=== PATIENT | female | born 1980 | race Caucasian/White ===

== ENCOUNTER 2016-09-04 12:22 | Outpatient (CLI) | payer MEDICAID, OTHER ==
[~2016-09-04] VITALS: Ht 170.2 cm; Wt 97.0 kg
[~2016-09-04 12:22] MED LIST: PREN1TAB49
[2016-09-04 12:45] VITALS: Ht 170.2 cm; Wt 97.0 kg
[2016-09-04 12:46] VITALS: BP 122/75; PULSE 95; RESP 20
--- NOTE | 2016-09-04 14:05 | RADRPT ---
PROCEDURE: OB ultrasound for biophysical profile CLINICAL INDICATION: Decrease movement TECHNIQUE: Multiple sonographic images of the pelvis were obtained. Transabdominal views of the g ravid uterus are available for review. The images were reviewed on a PACS workstation. COMPARISON: None FINDINGS: breathing movement = 2/2 tone = 2/2 motion = 2/2 SYED = 2/2 SYED = 17.6 cm Single live intrauterine with cardiac activity of 139 bpm. position is cephal ic. The placenta is anterior. IMPRESSION: 1. Single live intrauterine gestation. 2. Biophysical profile = 8/8. 3. SYED = 17.6 cm. RPTAT: HH .Naida Aguirre MD, MD Date Time Electronically viewed and signed by .Naida Aguirre MD, on 09/04/2016 14:05 .G/
--- NOTE | 2016-09-04 14:27 | PN ---
Date/Time of Note Date/Time of Note DATE: 09/04/16 TIME: 14:24 OB Subjective Subjective Subjective Patient is 3 para 2 at 34+3 weeks of gestation with estimated date of delivery on October 13, 2016 She presents with decreased movement, no contractions, no leaking fluid, no vaginal bleeding OB Objective Objective Objective NST is reactive Biophysical profile of 8 out of 8 with a SYED 18 HEENT: WNL Heart: Rhythm Normal Lungs: Clear, Equal Abdomen: WNL Extremities: Normal Reflexes: Normal Cervical Dilatation: None Membranes: Intact Heart Rate: 140's Accelerations: Accelerations Present Decelerations: No Decelerations OB Assessment/Plan Other Assessment: 34+ weeks of gestation with decreased movement Other plan: Patient was counseled regarding kick counts She was instructed to follow-up with SOLDER[facility] TECHNICIAN in 2-3 days MARBELLA HIGHTOWER MD September 04, 2016 14:27
== END 2016-09-04 14:25 | disposition home or self-care (01) ==
LOC: OBT 12:22 → L-D 12:22 → OBT 14:25
PROVIDERS: ATTEND Obstetrics & Gynecology
DX: O36.8130 Decreased fetal movements, third trimester, not applicable or unspecified (principal); O09.523 Supervision of elderly multigravida, third trimester; Z3A.34 34 weeks gestation of pregnancy
CPT/HCPCS: 76818; G0463

== ENCOUNTER 2016-10-10 17:06 | Inpatient (IN) | payer OTHER ==
[~2016-10-10] VITALS: Ht 167.6 cm; Wt 97.7 kg
[2016-10-10] MEDS ORDERED: [UNRECOGNIZED DRUG - CODE] PO (17:43)
[2016-10-10 17:44] VITALS: BP 131/80; PULSE 97; RESP 20
[2016-10-10] MEDS ORDERED: LACTATED RINGER'S 1,000 ML IV PRN (19:09)
[2016-10-10] MEDS ORDERED: OXYTOCIN 30 UNITS/LR 500 ML IV SCH ×2 (19:30)
[2016-10-10] MEDS ORDERED: OXYTOCIN 30 UNITS/LR 500 ML IV PRN ×2 (19:30)
[2016-10-10] MEDS ORDERED: BUTORPHANOL 2 MG INJ IV PRN (19:30)
[2016-10-10] MEDS ORDERED: AMPICILLIN 2 GM/NS (PMX) 100 ML IV ONE (19:30)
[2016-10-10] MEDS ORDERED: MISOPROSTOL 200 MCG TAB PR PRN (19:30)
[2016-10-10] MEDS ORDERED: METHYLERGONOVINE 0.2 MG INJ IM PRN (19:30)
[2016-10-10] MEDS ORDERED: CARBOPROST 250 MCG INJ IM PRN (19:30)
[2016-10-10] MEDS ORDERED: IBUPROFEN 600 MG TAB PO PRN (19:30)
[2016-10-10] MEDS ORDERED: LIDOCAINE 1% (MPF) 30 ML INJ INJ PRN (19:30)
[2016-10-10] MEDS ORDERED: MINERAL OIL LIGHT 10 ML VIAL TOP PRN (19:30)
[2016-10-10] MEDS: LACTATED RINGER'S 1,000 ML IV SCH (19:53)
[2016-10-10 20:07] LABS: ADD SCAN DIFF NO
[2016-10-10 20:15] LABS: BASOPHILS % 0.3 % (0.0-2.0); EOSINOPHILS # 0.1 10^3/ul (0.0-0.5); EOSINOPHILS % 1.5 % (0.0-7.0); HEMATOCRIT 34.8 % (37.0-47.0); HEMOGLOBIN 11.6 g/dl (12.0-16.0); LYMPHOCYTES % 23.1 % (15.0-51.0); MEAN CORPUSCULAR HEMOGLOBIN 27.8 pg (29.0-33.0); MEAN CORPUSCULAR HGB CONC 33.3 g/dl (32.0-37.0); MEAN CORPUSCULAR VOLUME 83.5 fl (82.0-101.0); MEAN PLATELET VOLUME 12.8 fl (7.4-10.4); MONOCYTE # 0.5 10^3/ul (0.3-0.9); NEUTROPHIL # 5.9 10^3/ul (1.6-7.5); NEUTROPHILS % 68.8 % (39.0-77.0); PLATELET COUNT 178 10^3/UL (140-415); RED BLOOD COUNT 4.17 10^6/ul (4.20-5.40); RED CELL DISTRIBUTION WIDTH 12.9 % (11.5-14.5); WHITE BLOOD COUNT 8.6 10^3/ul (4.8-10.8)
[2016-10-10 20:40] LABS: INR 0.94; PROTIME 12.6 Sec (12.2-14.2)
[2016-10-10 20:41] LABS: PARTIAL THROMBOPLASTIN TIME 24.4 Sec (25.0-35.0)
[2016-10-10] MEDS ORDERED: AMPICILLIN 1 GM/NS (PMX) 50 ML IV SCH (22:00)
[2016-10-11] MEDS: LACTATED RINGER'S 1,000 ML IV SCH ×3 (01:04→17:43)
[2016-10-12] MEDS ORDERED: FENTAnyl 2MCG/ML-ROPIV 0.2% 100 ML ONE (00:52)
[2016-10-12] MEDS: LACTATED RINGER'S 1,000 ML IV SCH (04:03)
[2016-10-12] MEDS ORDERED: MINERAL OIL 30ML CUP PO ONE (04:30)
[2016-10-12] MEDS ORDERED: MINERAL OIL LIGHT 10 ML VIAL TOP ONE (07:30)
--- NOTE | 2016-10-12 08:30 | HP ---
Date/Time of Note Date/Time of Note DATE: 10/12/16 TIME: 08:21 OB - History Hx of Present Free Text/Dictation 36 y.o in early labor with intact membrane having uterine contraction 2 -4 min apart VE 1-2/50% -3 course was unevenful X2 admitted for expectant management poss augmentation. Estimated Due Date: Oct 21, 2016 : 3 Para: 2 Spontaneous : 0 Therapeutic : 0 Care: Good Care Ultrasounds: Normal mid trimester US Obstetrical Complications: None Medical Complications: None Past Family/Social History * Past Medical, Surgical, Family and Obstetric Histories reviewed from chart. Blood Type: O+ Rubella: immune RPR/VDRL: Negative GBS Status: Negative HBsAG: Negative OB Admission Exam Vital Signs Vital Signs Vital Signs Date Time Temp Pulse Resp B/P Pulse Ox O2 Delivery O2 Flow Rate FiO2 10/10/16 17:44 97.5 97 20 131/80 98 Room Air Physical Exam HEENT: WNL Heart: Rhythm Normal Lungs: Clear, Equal Abdomen: WNL Extremities: Normal Reflexes: Normal Cervical Dilatation: 1cm Effacement: 50% Station: -3 Membranes: Intact Amniotic Fluid: Unevaluable Heart Rate: 120's Accelerations: Accelerations Present Decelerations: No Decelerations Varibility: Moderate Contractions on Admission: < 5 Minutes Apart Intensity: Moderate Last 72 hours Lab Results CBC & BMP 10/10/16 19:50 OB Assessment/Plan Reason for admission: active labor, other Plan: Expectant Management OLIVIA ENNIS MD Oct 12, 2016 08:30
[2016-10-12 10:25] VITALS: BP 110/56; PULSE 70; RESP 18
[2016-10-12] MEDS ORDERED: OXYCODONE/ASPIRIN (4.88/325) TAB PO PRN ×2 (12:00)
[2016-10-12] MEDS ORDERED: BENZOCAINE 20% 56 ML SPRAY TOP PRN (12:00)
[2016-10-12] MEDS ORDERED: MISOPROSTOL 200 MCG TAB PR PRN (12:00)
[2016-10-12] MEDS ORDERED: LANOLIN 7 GM TUBE TOP PRN (12:00)
[2016-10-12] MEDS ORDERED: ZOLPIDEM 5 MG TAB PO PRN (12:00)
[2016-10-12] MEDS ORDERED: OXYTOCIN 30 UNITS/LR 500 ML IV PRN (12:00)
[2016-10-12] MEDS ORDERED: METHYLERGONOVINE 0.2 MG INJ IM PRN (12:00)
[2016-10-12] MEDS: IBUPROFEN 600 MG TAB PO SCH ×3 (12:00→23:56)
[2016-10-12] MEDS ORDERED: CARBOPROST 250 MCG INJ IM PRN (12:00)
[2016-10-12] MEDS ORDERED: WITCH HAZEL/GLYCERIN PAD PR PRN (12:00)
[2016-10-12 12:19] VITALS: BP 114/63; PULSE 71; RESP 18
--- NOTE | 2016-10-12 13:34 | LDN ---
Date/Time of Note Date/Time of Note DATE: 10/12/16 TIME: 13:31 Delivery Summary OP rotate Weeks of Gestation [id number] Placenta Delivered: Spontaneously, Intact & Complete Meconium: none Episiotomy: No Perineal laceration: 0 Anesthesia type: Epidural Estimated blood loss: 20 Sponge & Needle done & correct: Yes All needle counts correct: Yes Any foreign bodies felt in the: No Problems: Infant Delivery Information Sex Infant Sex: male Apgars 1 Minute: 9 5 Minute: 9 10 Minute: 9 Suctioning Nose & mouth suctioned at aftab: Yes Delee suction performed: No Umbilical Cord Umbilical cord with: 3 Vessels Cord presentations: no nuchal cord Cord Blood was obtained: Yes Mother & Baby Disposition Disposition Mom & Baby to Maternity; Good: Yes Mom transferred to: Other () Baby to NICU: No OLIVIA ENNIS MD Oct 12, 2016 13:34
[2016-10-12 15:45] VITALS: BP 106/55; PULSE 80; RESP 18
[2016-10-12 20:00] VITALS: BP 115/57; PULSE 77; RESP 19
[2016-10-12] MEDS: SENNA/DOCUSATE NA (8.6MG/50MG) TAB PO SCH (21:00)
[2016-10-13 03:50] VITALS: BP 93/50; PULSE 64; RESP 19
[2016-10-13] MEDS: IBUPROFEN 600 MG TAB PO SCH ×2 (05:40→11:57)
[2016-10-13 08:24] LABS: ADD SCAN DIFF NO
[2016-10-13 08:36] LABS: BASOPHILS % 0.4 % (0.0-2.0); EOSINOPHILS # 0.2 10^3/ul (0.0-0.5); EOSINOPHILS % 2.3 % (0.0-7.0); HEMATOCRIT 31.5 % (37.0-47.0); HEMOGLOBIN 10.3 g/dl (12.0-16.0); LYMPHOCYTES # 2.7 10^3/ul (0.8-2.9); LYMPHOCYTES % 35.5 % (15.0-51.0); MEAN CORPUSCULAR HEMOGLOBIN 28.1 pg (29.0-33.0); MEAN CORPUSCULAR HGB CONC 32.7 g/dl (32.0-37.0); MEAN CORPUSCULAR VOLUME 85.8 fl (82.0-101.0); MEAN PLATELET VOLUME 12.8 fl (7.4-10.4); MONOCYTE # 0.6 10^3/ul (0.3-0.9); MONOCYTES % 7.6 % (0.0-11.0); NEUTROPHILS % 53.7 % (39.0-77.0); PLATELET COUNT 129 10^3/UL (140-415); RED BLOOD COUNT 3.67 10^6/ul (4.20-5.40); RED CELL DISTRIBUTION WIDTH 13.2 % (11.5-14.5); WHITE BLOOD COUNT 7.5 10^3/ul (4.8-10.8)
[2016-10-13 08:45] VITALS: BP 114/72; PULSE 68; RESP 18
[2016-10-13] MEDS: SENNA/DOCUSATE NA (8.6MG/50MG) TAB PO SCH (09:00)
--- NOTE | 2016-10-13 10:19 | PD.PPDC ---
DIRECTOR OF TESTING Discharge Instruction Diagnosis Final Diagnosis: s/p Condition Patient Condition: Stable Diet Diet: Resume Regular Diet Activity/Restrictions Activity: May Shower Restrictions: No Lifting No Sexual Activity Nothing in the Vagina No [place] No Tampons, douche Follow-up Follow-up with Physician: 6, Week/Weeks Return to clinic for [facility]ENCH Instructions: Fever greater than 101 Chills Worsening abdominal pain Excessive Vaginal Bleeding More than 2 pads per hour Unable to tolerate diet OB Instructions: Breast Tenderness Depression Blurried Vision Headache OLIVIA ENNIS MD Oct 13, 2016 10:19
--- NOTE | 2016-10-13 10:25 | DS ---
Date/Time of Note Date/Time of Note DATE: 10/13/16 TIME: 10:21 Obstetrical Discharge Record Final Diagnosis Final Diagnosis: Term delivered Vaginal Delivery Obstetrical Delivery: Spontaneous Complications Augmentation: Yes Rupture of Membranes: No Condition on Discharge Physical Assessment Last Vitals: vss afebrile Voiding: Yes Bowel Movement: Yes Breast: Soft, non-tender Fundus: Firm Patient Condition: Stable OLIVIA ENNIS MD Oct 13, 2016 10:25
[2016-10-13 15:56] VITALS: BP 110/63; PULSE 65; RESP 18
[2016-10-14] MEDS ORDERED: DIPHTH/TET/ACEL PERTUSS (ADULT) 0.5 ML VIAL IM* ONE (09:00)
== END 2016-10-13 17:34 | disposition home or self-care (01) | DRG 775 ==
LOC: OBT 17:06 → L-D 17:07 → OBT 18:00 → L-D 18:00 → PP1 10-12 11:38
PROVIDERS: ADMIT Obstetrics & Gynecology; ATTEND Obstetrics & Gynecology
PROC: 10E0XZZ Delivery of Products of Conception, External Approach (ICD-10-PCS; principal; 2016-10-12)
DX: O80 Encounter for full-term uncomplicated delivery (principal); Z37.0 Single live birth; Z3A.38 38 weeks gestation of pregnancy
CPT/HCPCS: 62319; 85025; 85610; 85730; 86592; 86762; 86900; 86901; 87340; G0463; J2590; J3010; J7120